=== PATIENT | female | born 1965 | race Caucasian/White ===

== ENCOUNTER 2016-08-28 08:14 | Outpatient (CLI) | payer MEDICAID | END 2016-08-28 08:15 | disposition home or self-care (01) | DX: Z12.39 Encounter for other screening for malignant neoplasm of breast (principal); Z80.3 Family history of malignant neoplasm of breast ==

== ENCOUNTER 2018-05-16 16:09 | Outpatient (CLI) | payer MEDICAID | END 2018-05-16 16:10 | disposition critical access hospital (66) | LOC: EMS 16:09 | PROVIDERS: ATTEND Surgery | DX: R07.89 Other chest pain (principal) | CPT/HCPCS: A0425; A0427; A0999 ==

== ENCOUNTER 2018-05-16 16:37 | Emergency (ER) | payer MEDICAID ==
[2018-05-16] MEDS ORDERED: ASPIRIN CHEW 81 MG TABLET PO STA (16:39)
--- NOTE | 2018-05-16 16:40 | ED Physician Documentation ---
PD HPI CHEST PAIN - Stated complaint Stated Complaint: CHEST PAIN - History obtained from History obtained from: Patient - History of Present Illness Timing - onset: Other (She was awoken this morning at 5 AM by central chest pain which has been present all day. It is associated with shortness of breath. There is no radiation to it. She was seen in the clinic and referred to the emergency department because of the complaints. Prior to arrival her EKG was negative. He has had a cough productive of white sputum for the last 3 days. She received aspirin and Nitropaste prior to arrival.) Review of Systems Constitutional: denies: Fever, Chills Ears: reports: Reviewed and negative Nose: reports: Reviewed and negative Cardiac: reports: Chest pain / pressure. denies: Palpitations Respiratory: denies: Dyspnea, Cough PD PAST MEDICAL HISTORY - Past Surgical History Past Surgical History: No - Present Medications Home Medications: Ambulatory Orders Medication Instructions Recorded Confirmed Albuterol 05/16/18 Atorvastatin Calcium 05/16/18 Cholecalciferol (Vitamin D3) 05/16/18 [Vitamin D3] Fluticasone [Flonase] 1 sprays OZIEL DAILY 05/16/18 05/16/18 Lisinopril 05/16/18 Metoprolol Succinate/Hctz 05/16/18 [Metoprolol ER-Hctz 50-12.5 mg] Naproxen Sodium 05/16/18 - Allergies Allergies/Adverse Reactions: Allergies Allergy/AdvReac Type Severity Reaction Status Date / Time No Known Drug Allergies Allergy Verified 05/16/18 16:50 - Social History Does the pt smoke?: No Smoking Status: Never smoker Does the pt drink ETOH?: Yes Does the pt have substance abuse?: No - Immunizations Immunizations are current?: Yes PD ED PE NORMAL - Vitals Vital signs reviewed: Yes - General General: Alert and oriented X 3, No acute distress - HEENT HEENT: PERRL, EOMI - Neck Neck: Supple, no meningeal sign, No bony TTP - Cardiac Cardiac: RRR, No murmur - Respiratory Respiratory: No respiratory distress, Clear bilaterally - Abdomen Abdomen: Soft, Non tender - Back Back: No CVA TTP, No spinal TTP - Derm Derm: Normal color, Warm and dry - Extremities Extremities: No edema, No calf tenderness / cord - Neuro Neuro: Alert and oriented X 3, Normal speech - Psych Psych: Normal mood, Normal affect Results - Vitals Vitals: Vital Signs - 24 hr 05/16/18 05/16/18 16:38 17:00 Temperature 37.2 C Heart Rate 80 Respiratory 16 Rate Blood Pressure 182/94 H Blood Pressure 147/82 H [Right] O2 Saturation 100 Oxygen O2 Source Room air - EKG (time done) 1647 Rate: Rate (enter#) (74) Rhythm: NSR, LAE Quinton: LAD Intervals: Normal OR QRS: Normal Ischemia: Normal ST segments Computer interpretation: Agree with computer - Labs Labs: Laboratory Tests 05/16/18 05/16/18 05/16/18 16:49 16:49 16:49 WBC 9.2 RBC 5.09 Hgb 14.0 Hct 43.0 MCV 84.5 MCH 27.6 MCHC 32.6 RDW 16.1 H Plt Count 281 MPV 8.4 Neut # (Auto) 5.9 Lymph # (Auto) 2.4 Glades # (Auto) 0.7 Eos # (Auto) 0.2 Baso # (Auto) 0.1 Absolute Nucleated RBC 0.01 Nucleated RBC % 0.1 Sodium 139 Potassium 3.7 Chloride 100 L Carbon Dioxide 30 Anion Gap 9.0 BUN 14 Creatinine 0.5 Estimated GFR (MDRD) 130 Glucose 104 H Calcium 9.3 Total Bilirubin 0.4 AST 23 ALT 20 Alkaline Phosphatase 78 Troponin I < 0.04 Total Protein 7.9 Albumin 4.3 Globulin 3.6 Albumin/Globulin Ratio 1.2 Lipase 27 - Rads (name of study) 1v chest Radiology: EMP read contemporaneously (normal) PD MEDICAL DECISION MAKING - ED course ED course: This is a 53-year-old woman with atypical chest pain of 12 hours duration with negative biomarkers and nonischemic EKG. Heart score of 2. Nothing in the history of physical examination to suggest PE. Departure - Departure Disposition: 01 Home, Self Care Clinical Impression: Atypical chest pain Condition: Good Record reviewed to determine appropriate education?: Yes Instructions: ED Chest Pain Atypical Unkn Cause Comments: Follow-up with your physician, discuss stress testing in follow-up. Return for any new or worsening symptoms immediately. Your blood pressure was elevated today on check into the emergency department. This does not mean that you have hypertension, it is a common phenomenon to come to the emergency department and have elevated blood pressure. I recommend that you see your primary care physician within the week to have it rechecked when you are feeling better.
[2018-05-16 16:58] LABS: BASOPHILS # (AUTO) 0.1 10^3/uL (0.0-0.1); BASOPHILS % (AUTO) 0.6 %; EOSINOPHILS # (AUTO) 0.2 10^3/uL (0.0-0.7); EOSINOPHILS % (AUTO) 2.1 %; LYMPHOCYTES # (AUTO) 2.4 10^3/uL (1.5-3.5); LYMPHOCYTES % (AUTO) 25.7 %; MEAN CORPUSCULAR HEMOGLOBIN 27.6 pg (27.0-31.0); MEAN CORPUSCULAR HGB CONC 32.6 g/dL (32.0-36.0); MEAN CORPUSCULAR VOLUME 84.5 fL (81.0-99.0); MEAN PLATELET VOLUME 8.4 fL (7.9-10.8); MONOCYTES # (AUTO) 0.7 10^3/uL (0.0-1.0); MONOCYTES % (AUTO) 7.4 %; NEUTROPHILS # (AUTO) 5.9 10^3/uL (1.5-6.6); NEUTROPHILS % (AUTO) 64.2 %; PLT - PLATELET COUNT 281 10^3/uL (130-450); RED BLOOD COUNT 5.09 10^6/uL (4.20-5.40); RED CELL DISTRIBUTION WIDTH 16.1 % (12.0-15.0); WHITE BLOOD COUNT 9.2 x10^3/uL (4.8-10.8)
[2018-05-16 17:03] VITALS: BP 147/82
[2018-05-16 17:13] LABS: ALBUMIN 4.3 g/dL (3.2-5.5); ALBUMIN/GLOBULIN RATIO 1.2 (1.0-2.2); BILIRUBIN,TOTAL 0.4 mg/dL (0.2-1.0); CALCIUM 9.3 mg/dL (8.5-10.3); CREATININE 0.5 mg/dL (0.4-1.0); TOTAL PROTEIN 7.9 g/dL (6.7-8.2)
--- NOTE | 2018-05-16 17:13 | XRAY Report ---
Reason: chest pain Procedure Date: 05/16/2018 Accession Number: [id number] / [id number] Procedure: XR - Chest 1 View X-Ray CPT Code: 51336 FULL RESULT: EXAM: CHEST RADIOGRAPHY EXAM DATE: 05/16/2018 05:00 PM. CLINICAL HISTORY: Chest pain. COMPARISON: CHEST 2 VIEW PA/LAT 06/27/2015 8:11 PM. TECHNIQUE: Upright AP view. FINDINGS: The study is mildly underpenetrated. Lungs/Pleura: No focal opacities evident. No pleural effusion. No pneumothorax. Mediastinum: Within exam limitations, the cardiomediastinal contour is normal. Other: None. IMPRESSION: Normal single view chest. RADIA
== END 2018-05-16 17:31 | disposition home or self-care (01) ==
LOC: EDUNIT# → ED 16:37
DX: R07.89 Other chest pain (principal); R03.0 Elevated blood-pressure reading, without diagnosis of hypertension
CPT/HCPCS: 36415; 71045; 80053; 83690; 84484; 85025; 93005; 99283; 99284

== ENCOUNTER 2022-02-25 11:58 | Emergency (ER) | payer MEDICAID ==
--- OUTSIDE RECORDS SUMMARY | 2022-02-25 12:19 | EXTERNAL MEDICAL SUMMARY RPT | Continuity of Care Document ---
:1965 Author Organization [facility] Address [address] [place] [address] Phone Allergies No information. Encounters No information. Functional Status No information. Immunizations No information. Medications No information. Problems No information. Procedures date description facility +0000 Visit Code Hold [facility] Results/Labs No information. Social History No information. Vital Signs date measurement value units +0000 BMI BMI 54.94 kg/m2 +0000 BP_diastolic BP_diastolic 84 mm[H g] +0000 BP_systolic BP_systolic 162 mm[Hg] +0000 heart_rate heart_rate 75 /min +0000 height_metric height_metric 172.72 cm [id number]+0000 height_standard height_standard 68 in +0000 respiration_rate respiration_rate 18 /min +0000 temperature_metric temperature_metric 36.11 C +0000 temperature_standard temperature_standard 9 7 F +0000 weight_metric weight_metric 163.29 kg +0000 weight_standard weight_standard 360 lb
[2022-02-25] MEDS ORDERED: CLINDAMYCIN 150 MG CAPSULE PO STA (12:34)
[2022-02-25] MEDS ORDERED: KETOROLAC 60 MG/2 ML VIAL IM STA (12:52)
--- NOTE | 2022-02-25 13:36 | ED Physician Documentation ---
History of Present Illness - Stated complaint Stated Complaint: LT PX/SPIDER BITE - Chief complaint Chief Complaint: Wound - History obtained from History obtained from: Patient - History of Present Illness Pain level max: 6 Pain level now: 4 - Additonal information Additional information: Patient is a 56-year-old female who presents to the emergency department with left lower leg pain and a wound that has been present for about 6 to 7 months. She states that she has been and will see her primary care provider since the office stopped taking her insurance. She is diabetic. She states her blood sugars have been well controlled. She did go to the walk-in clinic and states that she was told to use Neosporin and wrapped the wound. She states it has become increasingly red and painful. Increasing drainage. Nothing seems to help the wound. No fevers. No chills. No vomiting. Review of Systems Constitutional: denies: Fever, Chills Respiratory: denies: Cough GI: denies: Nausea, Vomiting, Diarrhea Skin: denies: Rash Musculoskeletal: denies: Neck pain, Back pain Neurologic: denies: Headache PD PAST MEDICAL HISTORY - Past Medical History Past Medical History: Yes Cardiovascular: Hypertension, High cholesterol Respiratory: None Neuro: Peripheral neuropathy Endocrine/Autoimmune: None GI: None SIGNAL PROCESSING ENGINEER: None : None HEENT: None Psych: Anxiety Musculoskeletal: None Derm: None - Past Surgical History Past Surgical History: No - Present Medications Home Medications: Ambulatory Orders Medication Instructions Recorded Confirmed Albuterol 05/16/18 Atorvastatin Calcium 05/16/18 Cholecalciferol (Vitamin D3) 05/16/18 [Vitamin D3] Fluticasone [Flonase] 1 sprays OZIEL DAILY 05/16/18 05/16/18 Metoprolol Nguyen/Hydrochlorothiaz 05/16/18 [Metoprolol ER-Hctz 50-12.5 mg] Naproxen Sodium 05/16/18 lisinopriL [Lisinopril] 05/16/18 Oxycodone HCl/Acetaminophen 1 - 2 each PO Q6H PRN #14 tablet 02/25/22 [Percocet 5-325 mg Tablet] clindamycin HCL [Cleocin HCl] 300 mg PO Q6H #40 cap 02/25/22 - Allergies Allergies/Adverse Reactions: Allergies Allergy/AdvReac Type Severity Reaction Status Date / Time No Known Drug Allergies Allergy Verified 02/25/22 12:07 - Social History Does the pt smoke?: No Smoking Status: Never smoker Does the pt drink ETOH?: Yes Does the pt have substance abuse?: No - Immunizations Immunizations are current?: Yes - POLST Patient has POLST: No PD ED PE NORMAL - Vitals Vital signs reviewed: Yes - General General: Alert and oriented X 3, No acute distress - Derm Derm: Warm and dry - Extremities Extremities: Other - Neuro Neuro: Alert and oriented X 3 - Free text exam Free text exam: LLE - There is approximately a 8 cm area of erythema mainly on the posterior aspect of the calf, but it does extended amount of a 4 cm area around the anterior aspect. There is weeping drainage from the posterior aspect of the calf. There is no drainable abscess. There is diffuse ulceration of the skin. Neurovascularly intact. Results - Vitals Vitals: Vital Signs - 24 hr 02/25/22 02/25/22 12:02 12:06 Temperature 36.4 C L 36.5 C Heart Rate 80 80 Respiratory 20 20 Rate Blood Pressure 176/89 H 176/89 H O2 Saturation 99 99 Oxygen O2 Source Room air PD MEDICAL DECISION MAKING - ED course Complexity details: considered differential, d/w patient ED course: Patient is a 56-year-old female with a chronic wound to the left lower extremity. Appears acutely infected. Will start on antibiotics. Wound culture obtained. Neurovascularly intact. Maxorb was placed on the wound bed, then Curlex was applied around the remainder of the leg. A large Shabbir bandage was used to provide compression to the area. I spoke with patient access and they state that she can call [employer] [facility] [place] on Saturday to see if they can change her insurance provider to someone such as [facility] [place]. The patient states that she will make this phone call. I stressed the importance of close follow-up and the need to ensure that this is healing appropriately. Counseled at length that this will require specialized wound care to ensure that this wound heals. Patient is well-appearing, nontoxic. Patient counseled regarding signs and symptoms for which I believe and urgent re-evaluation would be necessary. Patient with good understanding of and agreement to plan and is comfortable going home at this time This document was made in part using voice recognition software. While efforts are made to proofread this document, sound alike and grammatical errors may occur. Departure - Departure Disposition: Home, Self Care Clinical Impression: Chronic wound of extremity Cellulitis Qualifiers: Site of cellulitis: extremity Site of cellulitis of extremity: lower extremity Laterality: left Qualified Code(s): L03.116 - Cellulitis of left lower limb Condition: Good Instructions: ED Infec Skin Cellulitis, ED Wound Care Follow-Up: Ryder Downs MD [Provider Admit Priv/Credential] - Ryder Downs MD [Provider Admit Priv/Credential] - Prescriptions: clindamycin HCL [Cleocin HCl] 300 mg PO Q6H #40 cap Oxycodone HCl/Acetaminophen [Percocet 5-325 mg Tablet] 1 - 2 each PO Q6H PRN #14 tablet PRN Reason: pain Comments: It is important that you follow-up closely with your primary care provider in order to obtain an urgent referral to wound care so this infection does not worsen, cause a bone infection or loss of your leg. This wound will need experienced wound care. We have placed an absorbent dressing on today that should help to absorb some of the moisture. This should be changed about every 7 days. Change the outer dressing whenever dirty or soiled. The Shabbir bandage will help with compression. Compression socks may help as well as your pain improves. A wound culture was sent today as well. Please return if you worsen. Your primary care provider can refer you to the wound care clinic here in the hospital. I spoke with patient access today and they state that you can call the number on the back of your insurance card on Saturday to ask them to switch to a different provider such as [facility] that is more accepted on the [place]. Look for dressings such as Maxsorb, cadexomer or Hydrofiber until you can see wound care. Your prescriptions were sent to [facility] in [place]. I am prescribing a short course of narcotic pain medication for you. These are potentially dangerous and addictive medications that should be used carefully. These medications may constipate you. Take an fzcl-asi-azbbmmk stool softener (docusate) twice daily with plenty of water while taking these medications. If you go 24 hours without a bowel movement, take ljhi-szv-ruhmnsf miralax, per package instructions. Do not drink or drive while taking these medications. If you received narcotic or sedating medications while in the emergency department, do not drive for 24 hours. Store this medication in a safe, secure place and out of reach of children. It is a violation of federal law to give or sell this medication to another person or to use in a manner other than prescribed. The ED will not refill narcotic prescriptions, including prescriptions lost or stolen. To dispose of unwanted medications: 1. [facility] at [address] in [place] has a medication drop box. They accept prescription medications (in pill form) Saturday through Saturday 9:00 a.m. to 5:00 p.m. 2. The [facility] [employer] accepts prescription medications (in pill form only) for disposal year round. Call for more information. 3. Contact the [facility] for the next [facility] sponsored prescription drug collection event. , [phone], or [phone];
[2022-02-25 13:48] VITALS: BP 130/88
--- NOTE | 2022-02-27 15:44 | ED Physician Documentation ---
ED Addendum - Addendum Addendum: 02/27/22 15:43 Cultures reviewed, given the sensitivities we we will change her antibiotics from clindamycin which would not be expected to have any activity against this gram-negative organism to amoxicillin 500 mg p.o. 3 times daily for 10 days. The nurse contacted the patient and I have E prescribed the above to Chito h[facility]ym[facility] per the patient's request.
== END 2022-02-25 13:41 | disposition home or self-care (01) ==
LOC: ED 11:58
DX: S81.802A Unspecified open wound, left lower leg, initial encounter (principal); L03.116 Cellulitis of left lower limb; X58.XXXA Exposure to other specified factors, initial encounter; E11.42 Type 2 diabetes mellitus with diabetic polyneuropathy; I10 Essential (primary) hypertension
CPT/HCPCS: 87070; 87205; 96372; 99283; A9270; 87077; 87181

== ENCOUNTER 2022-09-26 14:04 | Outpatient (CLI) | payer MEDICAID ==
--- NOTE | 2022-09-27 09:52 | Mammography Report ---
BILATERAL DIGITAL SCREENING MAMMOGRAM 3D/2D WITH EXAGGERATED CC: 09/26/2022 CLINICAL: Routine screening. Family history of breast cancer. Comparison is made to exam dated: 08/28/2016 mammogram - [facility]. There are scattered areas of fibroglandular density in both breasts (category b / 25%-50% glandular t issue). No significant masses, calcifications, or other findings are seen in either breast. There has been no significant interval change. IMPRESSION: NEGATIVE There is no mammographic evidence of malignancy. A 1 year screening mammogram is recommended. Based on the Tyrer Cuzick model (a risk assessment model) the patients lifetime risk is 16.0% and he r 10 year risk is 5.3%. According to the ACR, ACS, and NCCN guidelines, an annual breast MRI exam amaury ng with mammogram is recommended if the patients lifetime risk is 20% or greater. This exam was interpreted at Station ID: [id number]. NOTE: For mammograms, a report in lay terms will be sent to the patient. Approximately 15% of breast malignancies will not be visualized mammographically. In the management of a palpable breast mass, a negative mammogram must not discourage biopsy of a clinically suspicious lesion. Electronically Signed By: Cristino gaines/becky:09/26/2022 16:22:18 letter sent: No_Letter ACR BI-RADS Category 1: Negative 3341F PARENCHYMAL PATTERN: (A) - The breast(s) demonstrate(s) scattered fibroglandular densities. BI-RADS CATEGORY: (1) - 1 Mammogram [id number] 1 year screening LATERALITY: (B)
== END 2022-09-26 14:05 | disposition home or self-care (01) ==
LOC: DI.S 14:04
DX: Z12.31 Encounter for screening mammogram for malignant neoplasm of breast (principal); Z80.3 Family history of malignant neoplasm of breast

== ENCOUNTER 2023-06-13 08:00 | Outpatient (CLI) | payer MEDICAID ==
[2023-06-13 19:59] LABS: BILIRUBIN,URINE NEGATIVE (NEGATIVE); GLUCOSE, URINE (UA) 250 mg/dL (NEGATIVE); KETONES,URINE (UA) NEGATIVE (NEGATIVE); LEUKOCYTE ESTERASE, URINE SMALL (NEGATIVE); NITRITE,URINE NEGATIVE (NEGATIVE); OCCULT BLOOD,URINE NEGATIVE (NEGATIVE); PROTEIN,URINE NEGATIVE (NEGATIVE); UROBILINOGEN,URINE 0.2 (NORMAL) E.U./dL (NORMAL)
[2023-06-13 20:04] LABS: CLARITY,URINE CLOUDY (CLEAR)
[2023-06-13 20:20] LABS: AMORPHOUS SEDIMENT,UR Marked /LPF; BACTERIA,URINE Few /HPF (None Seen); RBC,URINE 0-5 /HPF (0-5); SQUAMOUS EPITHELIAL CELL,UR FEW Squamous (<= Few)
== END 2023-06-13 23:59 | disposition home or self-care (01) ==
LOC: LAB.F 08:00
PROVIDERS: ATTEND Registered Nurse
DX: R35.0 Frequency of micturition (principal); R30.0 Dysuria
CPT/HCPCS: 81001; 87086

== ENCOUNTER 2023-07-22 12:28 | Day surgery (SDC) | payer MEDICAID ==
[2023-07-22 13:14] VITALS: O2SAT 98
[2023-07-22] MEDS ORDERED: LIDOCAINE-MPF 1% 30 ML VIAL ONE (14:41)
[2023-07-22 15:15] VITALS: BP 131/65
--- NOTE | 2023-07-22 15:22 | ANESTHESIA PROCEDURE NOTE ---
Anesth Central Line Template - Central Line Central Line Preparation: Consent Obtained Central line location: Left Brachial Central line type: PICC Single Lumen Central line catheter tip site resides: Superior vena cava (SVC) Central line aftercare: Secured, Placement confirmed, No complications, Bundle checklist complete, Pt tolerated well (4 Fr single lumen PICC line, trimmed at 47cm, 3 exposed, confirmed by CXR)
--- NOTE | 2023-07-22 15:27 | XRAY Report ---
PROCEDURE: Chest for Line Placement INDICATIONS: post PICC line TECHNIQUE: One view of the chest was acquired. COMPARISON: None. FINDINGS: Surgical changes and devices: Left upper approach PICC tip projects over the cavoatrial junction. Lungs and pleura: No pleural effusions or pneumothorax. Lungs are clear. Mediastinum: Mediastinal contours appear normal. Heart size is normal. Bones and chest wall: No suspicious bony lesions. Overlying soft tissues appear unremarkable. IMPRESSION: Left extremity approach PICC tip projects over the cavoatrial junction. Reviewed by: Juan Phillips MD on 07/22/2023 3:26 PM PDT Approved by: Juan Phillips MD on 07/22/2023 3:26 PM PDT Station ID: [id number]
== END 2023-07-22 12:29 | disposition home or self-care (01) ==
LOC: SDS 12:28
PROVIDERS: ATTEND Nurse Anesthetist, Certified Registered
DX: L03.116 Cellulitis of left lower limb (principal); B96.5 Pseudomonas (aeruginosa) (mallei) (pseudomallei) as the cause of diseases classified elsewhere
CPT/HCPCS: 36569; C1751

== ENCOUNTER 2023-07-31 07:45 | Outpatient (CLI) | payer MEDICAID ==
[2023-07-31 14:40] LABS: BASOPHILS % (AUTO) 0.5 %; EOSINOPHILS # (AUTO) 0.3 10^3/uL (0.0-0.7); EOSINOPHILS % (AUTO) 4.4 %; HGB - HEMOGLOBIN 12.9 g/dL (12.0-16.0); LYMPHOCYTES # (AUTO) 1.9 10^3/uL (1.5-3.5); LYMPHOCYTES % (AUTO) 24.9 %; MEAN CORPUSCULAR HEMOGLOBIN 26.9 pg (27.0-31.0); MEAN CORPUSCULAR HGB CONC 30.7 g/dL (32.0-36.0); MEAN CORPUSCULAR VOLUME 87.5 fL (81.0-99.0); MEAN PLATELET VOLUME 10.7 fL (7.9-10.8); MONOCYTES # (AUTO) 0.7 10^3/uL (0.0-1.0); MONOCYTES % (AUTO) 8.7 %; NEUTROPHILS # (AUTO) 4.5 10^3/uL (1.5-6.6); NEUTROPHILS % (AUTO) 60.7 %; PLT - PLATELET COUNT 293 10^3/uL (130-450); RED CELL DISTRIBUTION WIDTH 15.8 % (12.0-15.0); WHITE BLOOD COUNT 7.5 x10^3/uL (4.8-10.8)
[2023-07-31 15:03] LABS: ALBUMIN 3.7 g/dL (3.2-5.5); ALBUMIN/GLOBULIN RATIO 1.1 (1.0-2.2); ALKALINE PHOSPHATASE 71 IU/L (42-121); ALT ALANINE AMINOTRANSFERASE 12 IU/L (10-60); AST ASPARTATE AMINOTRANSFERASE 15 IU/L (10-42); BILIRUBIN,TOTAL 0.4 mg/dL (0.2-1.0); BUN - BLOOD UREA NITROGEN 17 mg/dL (6-20); CALCIUM 9.4 mg/dL (8.5-10.3); CARBON DIOXIDE - CO2 27 mmol/L (21-32); CHLORIDE 101 mmol/L (101-111); CHOL/HDL RATIO 3.7 (<4.4); CHOLESTEROL 172 mg/dL; CREATININE 0.4 mg/dL (0.6-1.3); GFR - MDRD 165 (>89); GLUCOSE 150 mg/dL (74-104); HDL CHOLESTEROL 47 mg/dL; LDL CHOLESTEROL,CALCULATED 107 mg/dL; LDL/HDL RATIO 2.3 (<4.4); POTASSIUM 4.2 mmol/L (3.5-4.5); SODIUM 136 mmol/L (135-145); TRIGLYCERIDES 91 mg/dL (48-352); VLDL CHOLESTEROL 18 mg/dL
[2023-07-31 15:06] LABS: THYROID STIMULATING HORMONE 5.02 uIU/mL (0.34-5.60)
[2023-07-31 20:49] LABS: ESTIMATED AVERAGE GLUCOSE 174 mg/dL (70-100); HEMOGLOBIN A1c% 7.7 % (4.27-6.07)
== END 2023-07-31 07:46 | disposition home or self-care (01) ==
LOC: LAB.S 07:45
PROVIDERS: ATTEND Registered Nurse
DX: E88.810 Metabolic syndrome (principal); Z13.228 Encounter for screening for other metabolic disorders; Z13.220 Encounter for screening for lipoid disorders; Z13.29 Encounter for screening for other suspected endocrine disorder; Z13.0 Encounter for screening for diseases of the blood and blood-forming organs and certain disorders involving the immune mechanism
CPT/HCPCS: 36415; 80053; 80061; 83036; 83721; 84443; 85025